=== PATIENT | female | born 2000 | race Caucasian/White ===

== ENCOUNTER 2020-12-18 19:16 | Emergency (ER) | payer MEDICAID ==
[~2020-12-18] VITALS: Ht 154.9 cm; Wt 53.1 kg
--- NOTE | 2020-12-18 19:26 | NUR ---
Patient to ER bed 5 to gown for evaluation. Side rails up. Report given to Loretta MUELLER.
[2020-12-18 19:27] VITALS: BP_SYST 137
--- NOTE | 2020-12-18 20:00 | NUR ---
ER at bedside examining patient.
--- NOTE | 2020-12-18 20:00 | NUR ---
Denzel abad in EDM - 12/18/20 at 2212 by DAWSON DEV Billy at bedside examining patient.
[2020-12-18 21:36] VITALS: BP_SYST 110
--- NOTE | 2020-12-18 21:36 | NUR ---
Patient given written and verbal discharge instructions and verbalizes understanding. ER MD discussed with patient the results and treatment provided. Patient in stable condition. ID arm band removed. Patient educated on pain management and to follow up with PMD. Pain Scale 0/10. Opportunity for questions provided and answered. Medication side effect fact sheet provided.
== END 2020-12-18 21:36 | disposition home or self-care (01) ==
LOC: SED 19:16
DX: F41.0 Panic disorder [episodic paroxysmal anxiety] (principal); R55 Syncope and collapse
CPT/HCPCS: 81025; 93005; 99283